=== PATIENT | female | born 1950 | race Hispanic/Latino ===

== ENCOUNTER → 2018-08-18 | Outpatient (CLI) | payer MEDICARE ==
--- NOTE | 2018-08-18 16:40 | Diagnostic Imaging Report ---
EXAM: US ABDOMEN COMPLETE DATE: 08/18/2018 8:43 AM INDICATION:Abdominal pain COMPARISON: None FINDINGS: Grayscale and color flow Doppler ultrasound of the abdomen was performed. Liver: 14.2 cm span, no hepatomegaly. Hyperechoic parenchyma which may be seen with steatosis. No intrahepatic mass or bile duct dilatation. Main portal vein 0.7 cm, nondilated, normal hepatopetal flow. Spleen: 9.0 cm span, no splenomegaly. Biliary: There is a nonmobile shadowing filling defect at the gallbladder neck measuring 1.2 cm. No gallbladder wall thickening or pericholecystic fluid. Sonographic Hernandes sign negative. Common bile duct 0.4 cm, normal. Pancreas: Visualized portions show no mass or duct dilatation. Right kidney: 9.2 x 4.9 x 4.2 cm. Normal cortical echogenicity. No hydronephrosis or contour deforming mass. Left kidney: 9.9 x 5.2 x 4.1 cm. Normal cortical echogenicity. No hydronephrosis or contour deforming mass. Vessels: Aorta and IVC are partially obscured by bowel. Visualized portions unremarkable. Ascites: None IMPRESSION: 1. There is a fixed shadowing filling defect within the gallbladder. This may represent an adherent gallstone, polyp or gallbladder mass. Correlation with pre/post contrast abdominal CT or MRI may be helpful in characterization. 2. Hepatic steatosis. Signed by: Dr. Tod Madden M.D. on 08/18/2018 4:37 PM
== END ==
LOC: US 08:32
PROVIDERS: ATTEND Internal Medicine Gastroenterology
DX: R10.13 Epigastric pain (principal); R14.0 Abdominal distension (gaseous); K30 Functional dyspepsia; K59.00 Constipation, unspecified; E66.3 Overweight; Z71.3 Dietary counseling and surveillance; Z86.010 Personal history of colon polyps; Z87.891 Personal history of nicotine dependence
CPT/HCPCS: 76700

== ENCOUNTER → 2018-09-02 | Outpatient (CLI) | payer MEDICARE ==
[~2018-09-02] MED LIST: IOPAMIDOL 370 MG/ML 200 ML INFUS..BTL INJ ONE; SODIUM CHLORIDE 0.9% 50ML 50 ML ONE
[2018-09-02 08:54] LABS: BLOOD UREA NITROGEN 18 mg/dL (7-26); BUN/CREATININE RATIO 21 (6-25); CREATININE, SERUM 0.84 mg/dL (0.57-1.11); EST GLOMERULAR FILTRATION RATE > 60 ML/MIN (60-)
--- NOTE | 2018-09-02 09:59 | Diagnostic Imaging Report ---
EXAMINATION: CT of the abdomen with contrast. TECHNIQUE: Spiral CT images of the abdomen were performed from the lung bases to the iliac crests after the intravenous administration of 100 cc Isovue-[id number]. Coronal and sagittal reformatted images were obtained. COMPARISON: Right upper quadrant ultrasound 08/18/2018 CLINICAL HISTORY:Abdominal pain, abnormal gallbladder DISCUSSION: LOWER THORAX:Unremarkable. HEPATOBILIARY: No focal hepatic lesion or intrahepatic biliary ductal dilatation. The gallbladder is unremarkable. No radiopaque calculus, filling defect, or mass lesion. SPLEEN: No splenomegaly. PANCREAS: No focal masses or ductal dilatation. ADRENALS: No adrenal nodules. KIDNEYS/URETERS: Subcentimeter hypoattenuating lesion within the right kidney is too small to further characterize but likely to represent a small cyst. No hydronephrosis, calculi, or solid mass lesion. PERITONEUM/RETROPERITONEUM: No free air or fluid. LYMPH NODES: No retroperitoneal or mesenteric lymphadenopathy. VESSELS: Atherosclerotic calcification of the abdominal aorta and branch vessels without aneurysmal dilatation. Portal vein, splenic vein, and central superior mesenteric vein are patent. GI TRACT: Visualized portions of the small and large bowel shows no distention or wall thickening. Scattered descending colon diverticula without evidence of diverticulitis. BONES AND SOFT TISSUE: No osseous destructive lesions. No focal soft tissue abnormalities. IMPRESSION: No acute intra-abdominal CT abnormalities. Specifically, no evidence of gallbladder mass lesion. Shadowing filling defect described on the comparison ultrasound presumably represents a nonradiopaque calculus. Atherosclerotic vascular disease. Descending colon diverticulosis without findings of diverticulitis. Signed by: Dr. Kvng Lozano M.D. on 09/02/2018 9:56 AM
== END ==
LOC: CT 07:40
PROVIDERS: ATTEND Internal Medicine Gastroenterology
DX: R10.13 Epigastric pain (principal); R93.89 Abnormal findings on diagnostic imaging of other specified body structures
CPT/HCPCS: 36415; 74160; 82565; 84520; Q9967